=== PATIENT | female | born 1945 | race Two or more races ===

== ENCOUNTER 2019-10-04 02:10 | Inpatient (IN) | payer MEDICARE ==
[~2019-10-04] VITALS: Ht 149.9 cm; Wt 58.5 kg
--- NOTE | 2019-10-04 02:20 | NUR ---
PT BIBA FROM HOME C/O WEAKNESS AND FEVER. 103 ORAL TEMP. PT WAS DC'ED FROM [facility] 2 DAYS FOR SHINGLES PER PT. R UPPER QUADRANT ABD WOUND NOTED. +REDNESS +DISCHARGE. PT AAOX3, RESPIRATIONS EVEN AND UNLABORED ON RA W/ NAD NOTED. PT CONNECTED TO THE CLINICAL NURSE AND POX.
[2019-10-04] MEDS ORDERED: ACETAMINOPHEN ES 500 MG TABLET PO ONE (02:30)
[2019-10-04] MEDS ORDERED: ONDANSETRON HCL/PF 4 MG/2 ML VIAL IV ONE (02:30)
[2019-10-04] MEDS ORDERED: IV NS 0.9% 1,000 ML BAG IV ONE (02:30)
[2019-10-04] MEDS ORDERED: MORPHINE SULFATE INJ 2 MG/ML DISP.SYRIN IV ONE (02:30)
[2019-10-04] MEDS ORDERED: MORPHINE SULFATE INJ 4 MG/ML DISP.SYRIN ONE (02:32)
[2019-10-04] MEDS ORDERED: ACETAMINOPHEN ES 500 MG TABLET ONE (02:32)
[2019-10-04] MEDS ORDERED: ONDANSETRON HCL/PF 4 MG/2 ML VIAL ONE (02:32)
--- NOTE | 2019-10-04 02:38 | NUR ---
BLOOD COLLECTED AND SENT TO LAB
[2019-10-04 02:43] LABS: BASOPHILS % (AUTO) 0.2 % (0.0-2.0); EOSINOPHILS % (AUTO) 0.3 % (0.0-6.0); HEMATOCRIT 29 % (33-45); HEMOGLOBIN 9.5 g/dL (11.5-14.8); LYMPHOCYTES # (AUTO) 0.5 /CMM (0.8-4.8); LYMPHOCYTES % (AUTO) 3.1 % (20.0-44.0); MEAN CORPUSCULAR HGB CONC 33 g/dl (31.0-36.0); MEAN CORPUSCULAR VOLUME 87 fL (82-100); MONOCYTES # (AUTO) 0.5 /CMM (0.1-1.30); MONOCYTES % (AUTO) 2.8 % (2.0-12.0); NEUTROPHILS # (AUTO) 15.9 /CMM (1.8-8.9); NEUTROPHILS % (AUTO) 93.6 % (43.0-81.0); PLATELET COUNT (AUTO) 219 /CMM (150-450); RED BLOOD CELL COUNT(AUTO) 3.35 MIL/uL (4.0-5.2)
[2019-10-04 03:00] LABS: ALANINE AMINOTRANSFERASE 19 U/L (12-78); ALBUMIN 3.1 g/dL (3.4-5.0); ALKALINE PHOSPHATASE 64 U/L (46-116); ASPARTATE AMINOTRANSFERASE 16 U/L (15-37); BILIRUBIN,DIRECT 0.1 mg/dL (0.0-0.2); BILIRUBIN,TOTAL 0.3 mg/dL (0.2-1.0); CALCIUM, SERUM 8.1 mg/dL (8.5-10.1); CARBON DIOXIDE 12 mmol/L (21-32); CHLORIDE 107 mmol/L (98-107); CREATININE 4.2 mg/dL (0.6-1.3); GLUCOSE 134 mg/dL (74-106); POTASSIUM 5.5 mmol/L (3.5-5.1); SODIUM SERUM 136 mmol/L (136-145); TOTAL PROTEIN, SERUM 6.4 g/dL (6.4-8.2); UREA NITROGEN, BLOOD 59 mg/dL (7-18)
[2019-10-04] MEDS ORDERED: VANCOMYCIN 1 GM in IV D5W 250 ML IV ONE (03:00)
[2019-10-04] MEDS ORDERED: VANCOMYCIN 1 GM VIAL ONE (03:26)
--- NOTE | 2019-10-04 03:44 | NUR ---
URINE COLLECTED AND SENT TO THE LAB.
[2019-10-04] MEDS ORDERED: hydrALAZINE HCL IV 20 MG VIAL ONE (04:16)
[2019-10-04] MEDS ORDERED: ONDANSETRON HCL/PF 4 MG/2 ML VIAL IVP PRN (04:30)
[2019-10-04] MEDS ORDERED: DEXTROSE 50%-WATER 50 ML DISP.SYRIN IV PRN (04:30)
[2019-10-04] MEDS ORDERED: MAG HYDROX/AL HYDROX/SIMETH 30 ML UDC PO PRN (04:30)
[2019-10-04] MEDS ORDERED: MAGNESIUM HYDROXIDE 30 ML UDC PO PRN (04:30)
[2019-10-04] MEDS ORDERED: Z GUARD REMEDY 2 OZ OINT TP PRN (04:30)
[2019-10-04] MEDS ORDERED: hydrALAZINE HCL IV 20 MG VIAL IV ONE (04:30)
[2019-10-04 04:41] LABS: APPEARANCE,URINE Slightly Cloudy (CLEAR); BILIRUBIN,URINE Negative (NEGATIVE); BLOOD, URINE Small Ery/uL (NEGATIVE); COLOR,URINE Yellow (YELLOW); KETONES,URINE Negative (NEGATIVE); LEUKOCYTE ESTERASE ,URINE Negative (NEGATIVE); NITRITE, URINE Negative (NEGATIVE); PH,URINE 5.5 (5.0-8.0); PROTEIN,URINE >=300 mg/dl (NEGATIVE); UGLUCOSE Negative (NEGATIVE); UROBILINOGEN,URINE 0.2 EU/dL (0.2)
[2019-10-04 05:03] LABS: BACTERIA,URINE Many /HPF (None Seen); RBC,URINE 21-50 /HPF (0-2); SQUAMOUS EPITHELIAL CELL,UR Moderate /HPF (None Seen); YEAST,URINE Moderate /HPF (None Seen)
[2019-10-04 05:04] LABS: COARSE GRANULAR CASTS,URINE Few /LPF (None Seen); URINE AMORPHOUS URATE Moderate /HPF (None Seen)
--- NOTE | 2019-10-04 05:06 | NUR ---
REPORT GIVEN TO ARA BONILLA
--- NOTE | 2019-10-04 05:07 | NUR ---
NURSE STATES THAT ROOM IS NOT READY
--- NOTE | 2019-10-04 05:15 | NUR ---
RN NOTES: CONTACTED [facility] TO SPEAK WITH MD FARM ADVISOR FOR CLARIFICATION OF ORDERS, PT COMING IN FOR FEVER, NO SWAB DONE IN ER. AWAITING FOR CALL BACK.
--- NOTE | 2019-10-04 05:22 | NUR ---
PER 3 WEST, ROOM IS NOT READY
--- NOTE | 2019-10-04 05:35 | NUR ---
RN NOTES: RECEIVED CALL FROM [facility] FOLLOWING UP IF MD CALL BACK, INFORMED MD DIDNT CALLBACK YET, PER EXCHANGE, THEY WILL DISPATCH THE CALL AGAIN. 2ND PAGE/CALL MADE.
--- NOTE | 2019-10-04 06:04 | NUR ---
RN NOTES: PAGED MD EXCAVATOR BACKHOE OPERATOR/3RD PAGE, ANSWERED BY [employer] [facility]. AWAITING CALL BACK
--- NOTE | 2019-10-04 06:10 | NUR ---
RN NOTES: RECEIVED CALL BACK FROM VIK ROSE MD HOSPITALIST, RELAYED SITUATION PT COMING IN FOR FEVER, CELLULITIS SHINGLES, NO COVID SWAB DONE IN ER, PER VIK ORELLANA SWAB, PT WILL BE R/O COVID. ORDERS READ BACK VERIFIED AND CARRIED OUT. NOTIFIED RN BUSINESS LINE CONTROLLER
--- NOTE | 2019-10-04 06:15 | NUR ---
RN NOTES: ROOM 115-1 FIRST FLOOR
--- NOTE | 2019-10-04 06:26 | NUR ---
REPORT GIVEN TO DESHAUN FOR ROSA ELENA
[2019-10-04 07:25] VITALS: BP 167/77
[2019-10-04 08:00] VITALS: BP 161/71
[2019-10-04] MEDS ORDERED: FEE PK DOSING 1 MIN EA MC ONE (08:08)
[2019-10-04] MEDS ORDERED: MYCO250C8 MT (08:20)
[2019-10-04] MEDS ORDERED: AMLO10TA7 MT (08:20)
[2019-10-04] MEDS ORDERED: ATOR20TA PO (08:20)
[2019-10-04] MEDS ORDERED: LEVO75TA7 MT (08:20)
[2019-10-04] MEDS ORDERED: PATI8.4P MT (08:20)
[2019-10-04] MEDS ORDERED: ALEN70TA6 MT (08:20)
[2019-10-04] MEDS ORDERED: BENA5TAB5 MT (08:20)
[2019-10-04] MEDS ORDERED: HYDR100T27 MT (08:20)
[2019-10-04 08:57] LABS: CREATININE, URINE 82.5 MG/DL (30.0-125.0); URINE TOTAL PROTEIN 452.6 mg/dL (0-11.9)
[2019-10-04] MEDS: BLOOD SUGAR DIAGNOSTIC 1 EACH STRIP IN SCH ×4 (09:13→23:22)
[2019-10-04] MEDS: CITRIC ACID/SODIUM CITRATE (BICITRA)15 ML UDC PO SCH ×4 (09:13→20:30)
[2019-10-04] MEDS: AMLODIPINE BESYLATE 10 MG TABLET PO SCH (09:14)
[2019-10-04] MEDS: METOPROLOL SUCCINATE 50 MG TAB.SR.24H PO SCH (09:14)
[2019-10-04] MEDS: MYCOPHENOLATE MOFETIL 250 MG CAPSULE PO SCH ×2 (09:14→20:30)
[2019-10-04] MEDS: HEPARIN SODIUM, PORCINE 5000 UNITS/1 ML VIAL SQ SCH ×2 (09:15→20:33)
--- NOTE | 2019-10-04 10:26 | NUR ---
SATELLITE MANAGER NOTES REASSESSMENTS NOT DONE PRIOR TO TRANSFER.
[2019-10-04] MEDS: Sodium Bicarbonate 100 MEQ in IV D5/0.45 NACL 1,000 ML IV PRN (11:57)
[2019-10-04 12:00] VITALS: BP 166/91
[2019-10-04] MEDS ORDERED: DOXYCYCLINE HYCLATE (100 MG) 100 MG TABLET PO SCH ×3 (12:00→12:30)
[2019-10-04] MEDS ORDERED: CEFTRIAXONE 1 G in IV D5W 50 ML IV SCH (12:00)
[2019-10-04] MEDS: INSULIN REGULAR, HUMAN 100 UNIT/ML 3 ML VIAL SQ PRN ×2 (13:06→23:22)
[2019-10-04 16:00] VITALS: BP 144/87
[2019-10-04] MEDS ORDERED: MEROPENEM 500 MG in IV NS 0.9% 50 ML IV SCH (18:00)
[2019-10-04] MEDS ORDERED: MICAFUNGIN SODIUM 150 MG in IV NS 0.9% 100 ML IV SCH (18:00)
[2019-10-04] MEDS: MICAFUNGIN SODIUM 100 MG in IV NS 0.9% 100 ML IV SCH (18:30)
--- NOTE | 2019-10-04 18:45 | NUR ---
RN END OF SHIFT SUMMARY NOTE PT IS A/O X3, AFEBRILE. CYMRAES SPEAKING.CARDIAC-MONITORED NSR, VSS. TOLERATING RA. DENIES ANY CHEST PAIN, SOB, N/V. RESPIRATIONS ARE EVEN AND UNLABORED, NOT IN ANY ACUTE DISTRESS NOTED. PT IS AMBULATORY W/ ASSIST BUT PT REFUSES TO VOID IN BATHROOM. ON ISOLATION PRECAUTIONS TAKEN FOR R/O COVID AND SHINGLES. PIC TO LEFT WRIST INTACT, CDI. MIVF NA BICARB +D51/2 NS @75ML/HR INFUSING. DRESSING DONE TO LCW AND RIGHT BACK. SAFETY MEASURES ARE IN PLACE. CALL LIGHT IS LEFT WITHIN REACH. WILL MONITOR AND CONTINUE POC.
[2019-10-04 20:00] VITALS: BP 161/84
[2019-10-05] VITALS: BP 166/77
[2019-10-05] MEDS: ACETAMINOPHEN 325 MG TABLET PO PRN (01:01)
[2019-10-05] MEDS: hydrALAZINE HCL 25 MG TABLET PO PRN (01:03)
--- NOTE | 2019-10-05 03:00 | NUR ---
telephone order dispatcher notes received a call from radha whitman covid 19 result is negative laboratory animal facility supervisor jagjit made aware and so with mohit combs.
[2019-10-05 04:00] VITALS: BP 146/72
--- NOTE | 2019-10-05 04:54 | NUR ---
RN notes Awake in bed watching tv with no apparent distress. Breathing even and unlabored. Room air well tolerated, Noted to have slight elevated temp at 99.5 at the beginning of the shift . At 00:00 at 100.5. Cooling measures provided, tylenol given with help. Hydralazine 25mg for elevated BP 166/77. Temp went down to 98.3 and BP at 146/72. Result for Covid 19 test was negative as relayed by soc from lab. made aware (Dr. Badillo)
[2019-10-05] MEDS: Sodium Bicarbonate 100 MEQ in IV D5/0.45 NACL 1,000 ML IV PRN ×2 (06:02→22:41)
--- NOTE | 2019-10-05 07:12 | NUR ---
RN OPENING NOTES RECEIVED PATIENT RESTING IN BED COMFORTABLY, EASILY AROUSED. SHE IS AOX4, VERBAL, AND ON BED REST. SHE IS ON RA, TOLERATING WELL, NO SOB OR RESP DISTRESS. TELE MONITOR SHOWING SR. SKIN IS NOT INTACT, RASH AND BLISTERS ON RIGHT FLANK AND UNDER R BREAST, WOUND CONSULT PENDING. IV SITE ON L WRIST 18 G SL IS PATENT AND INTACT. PT IS COVID NEGATIVE, WILL CHANGE TO CLEAN UNIT. SAFETY MEASURES HAVE BEEN IMPLEMENTED, CALL LIGHT IS WITHIN REACH, BED IS IN LOWEST AND LOCKED POSITION, SIDE RAILS UP X2, WILL CONTINUE TO MONITOR FOR ANY CHANGES.
[2019-10-05] MEDS: BLOOD SUGAR DIAGNOSTIC 1 EACH STRIP IN SCH ×4 (07:49→21:44)
[2019-10-05 08:00] VITALS: BP_SYST 108; BP_SYST 169; BP_DIAS 73; BP_DIAS 74
[2019-10-05 08:05] LABS: BASOPHILS % (AUTO) 0.2 % (0.0-2.0); EOSINOPHILS % (AUTO) 0.3 % (0.0-6.0); HEMATOCRIT 25 % (33-45); HEMOGLOBIN 8.2 g/dL (11.5-14.8); LYMPHOCYTES # (AUTO) 0.4 /CMM (0.8-4.8); LYMPHOCYTES % (AUTO) 2.5 % (20.0-44.0); MEAN CORPUSCULAR HGB CONC 33 g/dl (31.0-36.0); MEAN CORPUSCULAR VOLUME 87 fL (82-100); MONOCYTES # (AUTO) 0.7 /CMM (0.1-1.30); MONOCYTES % (AUTO) 4.3 % (2.0-12.0); NEUTROPHILS # (AUTO) 14.5 /CMM (1.8-8.9); NEUTROPHILS % (AUTO) 92.7 % (43.0-81.0); PLATELET COUNT (AUTO) 180 /CMM (150-450); RED BLOOD CELL COUNT(AUTO) 2.92 MIL/uL (4.0-5.2); WHITE BLOOD COUNT (AUTO) 15.6 K/uL (4.3-11.0)
[2019-10-05 08:19] LABS: CALCIUM, SERUM 7.2 mg/dL (8.5-10.1); CHLORIDE 106 mmol/L (98-107); CREATININE 4.1 mg/dL (0.6-1.3); GLUCOSE 131 mg/dL (74-106); MAGNESIUM 2.2 mg/dL (1.8-2.4); PHOSPHORUS 3.9 mg/dL (2.5-4.9); POTASSIUM 4.9 mmol/L (3.5-5.1); SODIUM SERUM 136 mmol/L (136-145); UREA NITROGEN, BLOOD 55 mg/dL (7-18)
[2019-10-05 08:26] LABS: CHOLESTEROL 112 mg/dL (<200); HDL CHOLESTEROL 50 mg/dL (40-60); LDL 55 mg/dL (0-99); THYROID STIMULATING HORMONE 3.788 uIU/mL (0.358-3.74); TRIGLYCERIDES 61 mg/dL (30-150)
[2019-10-05 08:36] LABS: CARBON DIOXIDE 17 mmol/L (21-32)
[2019-10-05] MEDS: CITRIC ACID/SODIUM CITRATE (BICITRA)15 ML UDC PO SCH ×4 (08:36→21:40)
[2019-10-05] MEDS: MYCOPHENOLATE MOFETIL 250 MG CAPSULE PO SCH ×2 (08:36→21:40)
[2019-10-05] MEDS: AMLODIPINE BESYLATE 10 MG TABLET PO SCH (08:36)
[2019-10-05] MEDS: METOPROLOL SUCCINATE 50 MG TAB.SR.24H PO SCH (08:37)
[2019-10-05] MEDS: HEPARIN SODIUM, PORCINE 5000 UNITS/1 ML VIAL SQ SCH ×2 (08:38→21:41)
[2019-10-05 08:51] LABS: ALBUMIN 2.7 g/dL (3.4-5.0); BILIRUBIN,DIRECT 0.1 mg/dL (0.0-0.2); BILIRUBIN,TOTAL 0.3 mg/dL (0.2-1.0); TOTAL PROTEIN, SERUM 5.8 g/dL (6.4-8.2)
[2019-10-05 10:59] LABS: ABG BASE EXCESS -9.1 mmol/L; ABG OXYGEN SATURATION 96.2 % (92.0-98.5); ABG PH 7.368 (7.350-7.450); ABG PO2 83.4 mmHg (75.0-100.0); COHb 0.2 % (0.5-1.5); MetHb 0.1 % (0.0-1.5); O2Hb 95.9 % (94.0-97.0); SITE, ABG Left Brachial; VENT MODE, BG RA
--- NOTE | 2019-10-05 11:19 | NUR ---
RN NOTES PT TRANSFERRED TO ROOM 204-1, TRANSFER REPORT GIVEN TO RICHARDSON RN FOR ROSA ELENA
[2019-10-05] MEDS: INSULIN REGULAR, HUMAN 100 UNIT/ML 3 ML VIAL SQ PRN ×3 (11:34→21:51)
--- NOTE | 2019-10-05 11:59 | NUR ---
M/S 2 RN NOTES RECEIVED PT ON BED TRANSFERRED FROM DESHAUN ACCOMPANIED BY CHLOE BULLOCK AND SIL AARON. PT A/OX4, RESPONSIVE TO ALL STIMULI. ENG/TAGALOG SPEAKING, ABLE TO MAKE NEEDS KNOWN. RESPIRATION EVEN AND NON LABORED WITH NO ACUTE RESPIRATORY DISTRESS, SATING IN ROOM AIR 96%. ABD SOFT AND NON DISTENDED WITH ACTIVE BOWEL SOUNDS, CONTINENT B&B. SKIN WARM TO TOUCH AND DRY. DRESSING ON SHINGLES IN PLACE, CLEAN AND DRY, BACK AND UNDER BREAST FOLD. PT DENIES PAIN AND DISCOMFORT AT THIS TIME. IV SITE AT LEFT WRIST #18, RUNNING NA BICARBONATE 100 MEQ WITH D5 1/2 NS AT 75 ML/HR, RECEIVED AT 600 ML. ALL CONCERNS ATTENDED, BED IN LOW LOCKED POSITION, SRX2 UP FOR SAFETY, CALL LIGHT WITHIN REACH, ORIENTED TO ROOM. PT ON AIRBORNE ISOLATION DUE TO SHINGLES. COVID 19 NEG. WILL CONTINUE TO EVAL CARE.
--- NOTE | 2019-10-05 12:45 | NUR ---
M/S RN NOTES CITRIC ACID 1300 DUE MEDS FF UP, PER SUDHA TO SEND THE MEDICATION
--- NOTE | 2019-10-05 13:25 | NUR ---
M/S RN NOTES CITRIC ACID 1300 DUE MEDS FF UP, PER SUDHA/MELO TO SEND THE MEDICATION AFTER LUNCH OF TECH
[2019-10-05 16:00] VITALS: BP 151/68
[2019-10-05] MEDS: MEROPENEM 500 MG in IV NS 0.9% 50 ML IV SCH (16:02)
[2019-10-05] MEDS: MICAFUNGIN SODIUM 100 MG in IV NS 0.9% 100 ML IV SCH (17:00)
--- NOTE | 2019-10-05 18:37 | NUR ---
M/S RN CLOSING NOTES NOTES PT A/OX4, NAD, SATING IN ROOM AIR >92%. ABD SOFT AND NON DISTENDED WITH ACTIVE BOWEL SOUNDS, CONTINENT B&B. SKIN WARM TO TOUCH AND DRY. DRESSING ON SHINGLES IN PLACE, CLEAN AND DRY, BACK AND UNDER BREAST FOLD. DENIES PAIN AND DISCOMFORT. IV SITE AT LEFT WRIST #18, RUNNING NA BICARBONATE 100 MEQ WITH D5 1/2 NS AT 75 ML/HR. ALL CONCERNS ATTENDED, BED IN LOW LOCKED POSITION, SRX2 UP FOR SAFETY, CALL LIGHT WITHIN REACH, ON AIRBORNE ISOLATION DUE TO SHINGLES. ENDORSED CARE TO NEXT SHIFT.
--- NOTE | 2019-10-05 19:30 | NUR ---
ms rn opening note received patient on isolation for shingles. patient in bed. a/ox4. tolerating room air. respirations are even and unlabored. no s/s sob noted. no c/o pain at this time. in no apparent distress. iv access in left wrist #18 running na bicard 100MEQ with D5 03/26 ns @75ml/hr. hob elevated in semi fowlers, side rials up x2. call light within reach. will continue to monitor.
[2019-10-05 20:00] VITALS: BP 141/76
[2019-10-05 20:12] VITALS: BP 141/76
--- NOTE | 2019-10-05 23:41 | NUR ---
ms rn note photos were not taken per protocol Qsundays d/t patient was admitted yesterday. confirmed with charge nurse that photos do not need to be taken within one day of admission unless significant skin changes occurred. did a complete skin assessment and compared photos, no new skin break down noted.
[2019-10-06] MEDS ORDERED: VANCOMYCIN 0.75 GM in IV D5W 250 ML IV SCH (03:00)
[2019-10-06] MEDS: ACETAMINOPHEN 325 MG TABLET PO PRN ×3 (03:32→17:39)
--- NOTE | 2019-10-06 03:32 | NUR ---
ms rn note administered prn tylenol 650mg per patient request for back pain. will continue to monitor.
--- NOTE | 2019-10-06 06:20 | NUR ---
ms rn closing note patient on airborne isolation for shingles. patient in bed. a/ox4. remains tolerating room air. respirations are even and unlabored. no sob noted. gave Tylenol for pain. No distress. iv access maintained in left wrist #18 running sodium bicard 100MEQ with D5 1/2 ns @75ml/hr. hob elevated in semi fowlers, side rials up x2. call light within reach. will endorse to next shift
[2019-10-06] MEDS: BLOOD SUGAR DIAGNOSTIC 1 EACH STRIP IN SCH ×4 (06:37→22:29)
[2019-10-06 06:49] LABS: BASOPHILS # (AUTO) 0.1 /CMM (0.0-0.2); BASOPHILS % (AUTO) 0.6 % (0.0-2.0); EOSINOPHILS % (AUTO) 1.6 % (0.0-6.0); HEMATOCRIT 24 % (33-45); HEMOGLOBIN 7.9 g/dL (11.5-14.8); LYMPHOCYTES # (AUTO) 0.5 /CMM (0.8-4.8); LYMPHOCYTES % (AUTO) 4.3 % (20.0-44.0); MEAN CORPUSCULAR HGB CONC 33 g/dl (31.0-36.0); MEAN CORPUSCULAR VOLUME 86 fL (82-100); MONOCYTES # (AUTO) 0.7 /CMM (0.1-1.30); MONOCYTES % (AUTO) 6.6 % (2.0-12.0); NEUTROPHILS # (AUTO) 9.9 /CMM (1.8-8.9); NEUTROPHILS % (AUTO) 86.9 % (43.0-81.0); PLATELET COUNT (AUTO) 181 /CMM (150-450); RED BLOOD CELL COUNT(AUTO) 2.81 MIL/uL (4.0-5.2); WHITE BLOOD COUNT (AUTO) 11.4 K/uL (4.3-11.0)
[2019-10-06 07:05] LABS: ALANINE AMINOTRANSFERASE 20 U/L (12-78); ALBUMIN 2.7 g/dL (3.4-5.0); ALKALINE PHOSPHATASE 69 U/L (46-116); ASPARTATE AMINOTRANSFERASE 18 U/L (15-37); BILIRUBIN,TOTAL 0.4 mg/dL (0.2-1.0); CALCIUM, SERUM 6.9 mg/dL (8.5-10.1); CARBON DIOXIDE 22 mmol/L (21-32); CHLORIDE 104 mmol/L (98-107); GLUCOSE 139 mg/dL (74-106); MAGNESIUM 2.2 mg/dL (1.8-2.4); PHOSPHORUS 3.7 mg/dL (2.5-4.9); POTASSIUM 4.7 mmol/L (3.5-5.1); SODIUM SERUM 137 mmol/L (136-145); TOTAL PROTEIN, SERUM 5.8 g/dL (6.4-8.2); UREA NITROGEN, BLOOD 59 mg/dL (7-18)
--- NOTE | 2019-10-06 07:22 | NUR ---
RN NOTES Received patient in bed resting comfortably in moderate high back rest. on airborne isolation for shingles. A/O x4. On RA with no signs of distress noted at this time. IV access on left wrist #18 running sodium bicarb 100MEQ with D5 1/2 NS @75ml/hr. patent and intact, safety measures in place, bed in lowest locked position with side rials up x2. call light within reach. Will continue to monitor.
[2019-10-06 08:00] VITALS: BP 153/84
[2019-10-06] MEDS: AMLODIPINE BESYLATE 10 MG TABLET PO SCH (08:40)
[2019-10-06] MEDS: METOPROLOL SUCCINATE 50 MG TAB.SR.24H PO SCH (08:40)
--- NOTE | 2019-10-06 08:42 | NUR ---
WOUND CARE CONSULT: PT PRESENTS WITH HEALING LESIONS TO RT BREASTFOLD AREA AND RT SIDE OF BACK, PRESENT ON ADMISSION. CONCUR WITH CURRENT TREATMENT (XEROFORM AND ABD PAD). DISCUSSED WITH NURSING STAFF. PT IS INDEPENDENT WITH BED MOBILITY AND CONTINENT. CURRENT FERNIE SCORE IS 19.
[2019-10-06] MEDS: MYCOPHENOLATE MOFETIL 250 MG CAPSULE PO SCH ×2 (08:43→22:27)
[2019-10-06] MEDS: CITRIC ACID/SODIUM CITRATE (BICITRA)15 ML UDC PO SCH ×4 (08:43→22:27)
[2019-10-06] MEDS: HEPARIN SODIUM, PORCINE 5000 UNITS/1 ML VIAL SQ SCH ×2 (08:43→22:28)
[2019-10-06 10:45] LABS: IRON, SERUM 45 ug/dl (50-175); TOTAL IRON BINDING CAPACITY 127 ug/dl (250-450)
[2019-10-06 10:46] LABS: FERRITIN 707 ng/mL (8-388)
[2019-10-06 16:00] VITALS: BP 138/66
[2019-10-06] MEDS: MEROPENEM 500 MG in IV NS 0.9% 50 ML IV SCH (16:35)
[2019-10-06] MEDS: MICAFUNGIN SODIUM 100 MG in IV NS 0.9% 100 ML IV SCH (17:37)
[2019-10-06] MEDS: Sodium Bicarbonate 100 MEQ in IV D5/0.45 NACL 1,000 ML IV PRN (17:38)
--- NOTE | 2019-10-06 18:40 | NUR ---
RN NOTES Patient in bed resting comfortably in moderate high back rest. on airborne isolation for shingles. A/O x4. On RA with no signs of distress noted throughout the shift. IV access on left wrist #18 running sodium bicarb 100MEQ with D5 1/2 NS @75ml/hr. patent and intact, safety measures in place, bed in lowest locked position with side rials up x2. call light within reach. Will endorse to assistant casino shift manager nurse for randee.
--- NOTE | 2019-10-06 19:30 | NUR ---
ms rn opening note received patient on isolation for shingles. patient in bed. a/ox4. tolerating room air. respirations are even and unlabored. no s/s sob noted. no c/o pain at this time. in no apparent distress. iv access in left wrist #18 running sodium bicard 100MEQ with D5 03/26 NS @75ml/hr. hob elevated in semi fowlers, side rials up x2. call light within reach. informed patient i will need to collect a urine specimen. will continue to monitor.
[2019-10-06 20:00] VITALS: BP 145/76
--- NOTE | 2019-10-06 20:20 | NUR ---
MS RN NOTE REASSESSED PATIENT O2 SATURATION, 88% ON ROOM AIR. PLACED PATIENT ON 2L/MIN VIA NASAL CANNULA O2 SAT 91%, INCREASE TO 4L/MIN AND INSTRUCTED PATIENT TO TAKE DEEP BREATHS, O2 SAT NOW 97%. WILL CONTINUE TO MONITOR.
[2019-10-07] MEDS: ACETAMINOPHEN 325 MG TABLET PO PRN ×2 (03:23→14:41)
--- NOTE | 2019-10-07 03:23 | NUR ---
ms rn note administered prn tylenol 650mg for generalied pain,. will continue to monitor.
[2019-10-07] MEDS: BLOOD SUGAR DIAGNOSTIC 1 EACH STRIP IN SCH ×4 (06:08→21:55)
[2019-10-07] MEDS: INSULIN REGULAR, HUMAN 100 UNIT/ML 3 ML VIAL SQ PRN ×2 (06:15→17:09)
--- NOTE | 2019-10-07 06:50 | NUR ---
ms rn closing note on isolation for shingles. patient in bed. a/ox4. on oxygen 4l/min via nasal cannula. respirations are even and unlabored. no sob noted. managed pain with tylenol. no distress. iv access maintained in left wrist #18 running sodium bicarb 100MEQ with D5 03/26 NS @75ml/hr. hob elevated in semi fowlers, side rials up x2. call light within reach. unable to collect urine specimen. will endorse to day shift
[2019-10-07 07:23] LABS: CALCIUM, SERUM 7.1 mg/dL (8.5-10.1); CARBON DIOXIDE 25 mmol/L (21-32); CHLORIDE 105 mmol/L (98-107); CREATININE 4.1 mg/dL (0.6-1.3); GLUCOSE 126 mg/dL (74-106); POTASSIUM 4.6 mmol/L (3.5-5.1); SODIUM SERUM 140 mmol/L (136-145); UREA NITROGEN, BLOOD 58 mg/dL (7-18)
[2019-10-07 08:00] VITALS: BP 158/67
[2019-10-07] MEDS: METOPROLOL SUCCINATE 50 MG TAB.SR.24H PO SCH (08:27)
[2019-10-07] MEDS: MYCOPHENOLATE MOFETIL 250 MG CAPSULE PO SCH ×2 (08:27→21:55)
[2019-10-07] MEDS: CITRIC ACID/SODIUM CITRATE (BICITRA)15 ML UDC PO SCH ×4 (08:27→21:52)
[2019-10-07] MEDS: HEPARIN SODIUM, PORCINE 5000 UNITS/1 ML VIAL SQ SCH ×2 (08:28→21:53)
[2019-10-07] MEDS: AMLODIPINE BESYLATE 10 MG TABLET PO SCH (08:28)
[2019-10-07] MEDS: Sodium Bicarbonate 100 MEQ in IV D5/0.45 NACL 1,000 ML IV PRN (14:41)
[2019-10-07 16:07] VITALS: BP 156/77
[2019-10-07] MEDS: MEROPENEM 500 MG in IV NS 0.9% 50 ML IV SCH (16:12)
[2019-10-07] MEDS: MICAFUNGIN SODIUM 100 MG in IV NS 0.9% 100 ML IV SCH (17:00)
[2019-10-07] MEDS ORDERED: CEFTRIAXONE 2 G in IV D5W 100 ML IV SCH (18:30)
--- NOTE | 2019-10-07 18:49 | NUR ---
RN NOTES Patient in bed resting comfortably in moderate high back rest. on airborne isolation for shingles. A/O x4. On RA with no signs of distress noted throughout the shift. IV access on left wrist #18 running sodium bicarb 100MEQ with D5 1/2 NS @75ml/hr. patent and intact, safety measures in place, bed in lowest locked position with side rials up x2. call light within reach. Will endorse to welder assembler nurse for randee.
--- NOTE | 2019-10-07 19:30 | NUR ---
ms rn opening note received patient on isolation for shingles. patient in bed. a/ox4. on oxygen 4l/min via nasal cannula. respirations are even and unlabored. no s/s sob noted. no c/o pain at this time. in no apparent distress. iv access in left wrist #18 running sodium bicard 100MEQ with D5 03/26 NS @75ml/hr. hob elevated in semi fowlers, side rials up x2. call light within reach. will continue to monitor.
[2019-10-07 20:00] VITALS: BP 147/68
--- NOTE | 2019-10-08 06:23 | NUR ---
ms rn closing note on isolation for shingles. patient in bed. a/ox4. on and off oxygen 4l/min via nasal cannula. respirations are even and unlabored. no sob noted. no c/o pain t/o shift. no distress. iv access maintained in left wrist #18 running sodium bicarb 100MEQ with D5 03/26 NS @75ml/hr. hob elevated in semi fowlers, side rials up x2. call light within reach. will endorse to day shift.
[2019-10-08 06:30] LABS: BASOPHILS # (AUTO) 0.1 /CMM (0.0-0.2); EOSINOPHILS % (AUTO) 2.1 % (0.0-6.0); HEMATOCRIT 26 % (33-45); HEMOGLOBIN 8.4 g/dL (11.5-14.8); LYMPHOCYTES # (AUTO) 0.5 /CMM (0.8-4.8); LYMPHOCYTES % (AUTO) 5.9 % (20.0-44.0); MEAN CORPUSCULAR HGB CONC 33 g/dl (31.0-36.0); MEAN CORPUSCULAR VOLUME 87 fL (82-100); MONOCYTES # (AUTO) 0.6 /CMM (0.1-1.30); MONOCYTES % (AUTO) 7.2 % (2.0-12.0); NEUTROPHILS # (AUTO) 6.7 /CMM (1.8-8.9); NEUTROPHILS % (AUTO) 83.8 % (43.0-81.0); PLATELET COUNT (AUTO) 211 /CMM (150-450); RED BLOOD CELL COUNT(AUTO) 2.92 MIL/uL (4.0-5.2); WHITE BLOOD COUNT (AUTO) 7.9 K/uL (4.3-11.0)
[2019-10-08] MEDS: BLOOD SUGAR DIAGNOSTIC 1 EACH STRIP IN SCH ×4 (06:33→21:26)
--- NOTE | 2019-10-08 07:12 | NUR ---
MS RN NOTES PATIENT IN BED ALERT ORIENTED X 4. NO ACUTE DISTRESS NOTED. BREATHING UNLABORED. NO SOB NOTED. IV ACCESS PATENT AND INTACT, NO REDNESS, NO SWELLING NOTED. SAFETY MEASURES IN PLACE. CALL LIGHT WITHIN REACH. WILL CONTINUE TO MONITOR ACCORDINGLY.
[2019-10-08 07:17] LABS: CALCIUM, SERUM 6.9 mg/dL (8.5-10.1); CARBON DIOXIDE 25 mmol/L (21-32); CHLORIDE 104 mmol/L (98-107); CREATININE 3.9 mg/dL (0.6-1.3); GLUCOSE 126 mg/dL (74-106); MAGNESIUM 2.1 mg/dL (1.8-2.4); POTASSIUM 4.6 mmol/L (3.5-5.1); SODIUM SERUM 142 mmol/L (136-145); UREA NITROGEN, BLOOD 61 mg/dL (7-18)
[2019-10-08 08:34] VITALS: BP 159/75
[2019-10-08] MEDS: MYCOPHENOLATE MOFETIL 250 MG CAPSULE PO SCH ×2 (09:33→21:19)
[2019-10-08] MEDS: FUROSEMIDE 100 MG/10 ML VIAL IV SCH ×3 (09:33→17:25)
[2019-10-08] MEDS: CITRIC ACID/SODIUM CITRATE (BICITRA)15 ML UDC PO SCH ×4 (09:33→21:19)
[2019-10-08] MEDS: METOPROLOL SUCCINATE 50 MG TAB.SR.24H PO SCH (09:34)
[2019-10-08] MEDS: HEPARIN SODIUM, PORCINE 5000 UNITS/1 ML VIAL SQ SCH ×2 (09:35→20:50)
[2019-10-08] MEDS: AMLODIPINE BESYLATE 10 MG TABLET PO SCH (09:35)
[2019-10-08] MEDS: INSULIN REGULAR, HUMAN 100 UNIT/ML 3 ML VIAL SQ PRN ×2 (12:25→21:26)
--- NOTE | 2019-10-08 14:26 | NUR ---
MS RN NOTES RECEIVED NEW ORDER FROM GERARDO COX FOR MIDLINE INSERTION , ORDER CLARIFIED AND READ BACK WITH GERARDO COX, NOTED AND CARRIED OUT.
--- NOTE | 2019-10-08 14:55 | NUR ---
MS RN NOTES MIDLINE INSERTED BY PICC LINE NURSE ANTHONY AT LEFT UPPER ARM G 18, PATIENT TOLERATED WELL, WITH TRANSPARENT DRESSING , NO REDNESS, NO BLEEDING, NO SWELLING NOTED. PER ANTHONY OK FOR USE.
[2019-10-08] MEDS: MICAFUNGIN SODIUM 100 MG in IV NS 0.9% 100 ML IV SCH (17:44)
[2019-10-08 17:51] VITALS: BP 147/71
--- NOTE | 2019-10-08 18:56 | NUR ---
MS RN CLOSING NOTES PATIENT IN BED ALERT ORIENTED X 4. NO ACUTE DISTRESS NOTED. BREATHING UNLABORED. NO SOB NOTED. IV ACCESS PATENT AND INTACT, NO REDNESS, NO SWELLING NOTED. NEEDS ATTENDED AND ANTICIPATED. KEPT COMFORTABLE. SAFETY MEASURES IN PLACE. CALL LIGHT WITHIN REACH. WILL ENDORSE TO NIGHT FOR CONTINUITY OF CARE.
--- NOTE | 2019-10-08 19:17 | NUR ---
MS RN: RECEIVED PATIENT Patient in bed, awake, A/O x4 forgetful. Appears weak, left eyelid swelling, denies pain. Right breast fold lesion, ABD pad in place. O2 4L via NC, tolerating well. IVf infusing. Contact/Airborne precaution maintained. Safety measure in place.
[2019-10-08 20:00] VITALS: BP 158/70
[2019-10-08] MEDS: Sodium Bicarbonate 100 MEQ in IV D5/0.45 NACL 1,000 ML IV PRN (20:49)
[2019-10-08] MEDS: CEFEPIME 2 GM in IV D5W 100 ML IV SCH (21:19)
[2019-10-08] MEDS: ACETAMINOPHEN 325 MG TABLET PO PRN (21:19)
--- NOTE | 2019-10-08 21:19 | NUR ---
MS RN: BACK PAIN Patient c/o lower back pain, denies N/V. PRN Tylenol given, will reassess.
--- NOTE | 2019-10-09 06:45 | NUR ---
MS RN: END OF SHIFT REPORT Patient in bed, A/O x3, forgetful at times. Left eyelid swelling, denies pain, no eye discharge. LIBORIO midline intact, maintained IVF. IV ABX as scheduled, afebrile overnight. O2 sat on low 90's, continue on O2 4L via NC, denies shortness of breath at rest and with exertion. Right back, right breast fold wound, wound care done. Given PRN Tylenol for lower back pain with relief. Contact/Airborne precaution maintained. Plan for ABX to complete 2 weeks as per ID. Will endorse to oncoming RN.
[2019-10-09] MEDS: BLOOD SUGAR DIAGNOSTIC 1 EACH STRIP IN SCH ×4 (07:01→21:22)
[2019-10-09] MEDS: INSULIN REGULAR, HUMAN 100 UNIT/ML 3 ML VIAL SQ PRN ×4 (07:10→21:42)
--- NOTE | 2019-10-09 07:15 | NUR ---
MS RN NOTES PATIENT IN BED ALERT ORIENTED X 4. NO ACUTE DISTRESS NOTED. BREATHING UNLABORED. NO SOB NOTED. IV ACCESS PATENT AND INTACT, NO REDNESS, NO SWELLING NOTED. SAFETY MEASURES IN PLACE. ISOLATION PRECAUTION IN PLACE. CALL LIGHT WITHIN REACH. WILL CONTINUE TO MONITOR ACCORDINGLY.
--- NOTE | 2019-10-09 07:15 | NUR ---
MS RN NOTES PATIENT IN BED ALERT ORIENTED X 4. NO ACUTE DISTRESS NOTED. BREATHING UNLABORED. NO SOB NOTED. DENIED PAIN AT THIS TIME. IV ACCESS PATENT AND INTACT, NO REDNESS, NO SWELLING NOTED. SAFETY MEASURES IN PLACE. CALL LIGHT WITHIN REACH. WILL CONTINUE TO MONITOR ACCORDINGLY. Addendum: 10/09/19 at 1119 by SUSAN LEON RN DISREGARD ABOVE NOTES , WRONG PATIENT
[2019-10-09 08:00] VITALS: BP 161/81
[2019-10-09 08:14] LABS: BASOPHILS # (AUTO) 0.1 /CMM (0.0-0.2); BASOPHILS % (AUTO) 1.4 % (0.0-2.0); EOSINOPHILS % (AUTO) 1.4 % (0.0-6.0); HEMATOCRIT 24 % (33-45); LYMPHOCYTES # (AUTO) 0.4 /CMM (0.8-4.8); LYMPHOCYTES % (AUTO) 5.9 % (20.0-44.0); MEAN CORPUSCULAR HGB CONC 33 g/dl (31.0-36.0); MEAN CORPUSCULAR VOLUME 88 fL (82-100); MONOCYTES # (AUTO) 0.5 /CMM (0.1-1.30); MONOCYTES % (AUTO) 6.7 % (2.0-12.0); NEUTROPHILS # (AUTO) 5.9 /CMM (1.8-8.9); NEUTROPHILS % (AUTO) 84.6 % (43.0-81.0); PLATELET COUNT (AUTO) 228 /CMM (150-450); RED BLOOD CELL COUNT(AUTO) 2.74 MIL/uL (4.0-5.2)
[2019-10-09] MEDS: MYCOPHENOLATE MOFETIL 250 MG CAPSULE PO SCH ×2 (08:52→21:04)
[2019-10-09] MEDS: CITRIC ACID/SODIUM CITRATE (BICITRA)15 ML UDC PO SCH ×4 (08:52→21:04)
[2019-10-09] MEDS: METOPROLOL SUCCINATE 50 MG TAB.SR.24H PO SCH (08:53)
[2019-10-09] MEDS: AMLODIPINE BESYLATE 10 MG TABLET PO SCH (08:53)
[2019-10-09] MEDS: HEPARIN SODIUM, PORCINE 5000 UNITS/1 ML VIAL SQ SCH ×2 (08:54→21:22)
--- NOTE | 2019-10-09 09:00 | NUR ---
MS RN NOTES PATIENT SEEN AND EVALUATED BY DR JACKSON, MADE AWARE OF CHEST XRAY RESULT FROM THIS AM , NO NEW ORDER MADE AT THIS TIME.
[2019-10-09 09:13] LABS: ALANINE AMINOTRANSFERASE 21 U/L (12-78); ALBUMIN 2.8 g/dL (3.4-5.0); ALKALINE PHOSPHATASE 92 U/L (46-116); ASPARTATE AMINOTRANSFERASE 24 U/L (15-37); BILIRUBIN,TOTAL 0.4 mg/dL (0.2-1.0); CALCIUM, SERUM 6.8 mg/dL (8.5-10.1); CARBON DIOXIDE 28 mmol/L (21-32); CHLORIDE 103 mmol/L (98-107); GLUCOSE 184 mg/dL (74-106); MAGNESIUM 2.1 mg/dL (1.8-2.4); PHOSPHORUS 4.5 mg/dL (2.5-4.9); POTASSIUM 4.7 mmol/L (3.5-5.1); SODIUM SERUM 142 mmol/L (136-145); TOTAL PROTEIN, SERUM 6.2 g/dL (6.4-8.2); UREA NITROGEN, BLOOD 61 mg/dL (7-18)
[2019-10-09] MEDS: Sodium Bicarbonate 100 MEQ in IV D5/0.45 NACL 1,000 ML IV PRN (12:34)
[2019-10-09 16:44] VITALS: BP 152/61
--- NOTE | 2019-10-09 19:30 | NUR ---
MS RN RECEIVE PT IN BED AWAKE WATCHING TV A/O X 3 PERIOD OF FORGETFULNESS, AIRBORNE ISOLATION. IN STABLE, NO S/S OF DISTRESS, SAFETY MEASURES AT ALL TIMES. WILL CONT TO MONITOR PT Addendum: 10/10/19 at 0455 by CLEMENTE OVIEDO RN NOTED IV BEEPING, REPOSITION PT'S ARM. RECEIVE PT WITH ONGOING D5 1/2 NS + NA BICARB @ 75 ML/HR. AMOUNT FLUID BAG APPROXIMATELY AT 1000 ML WITNESS BY 1 RN & MANAGER CLINICAL. EDUCATED PT THE SHE NEEDS IV FLUID. PT VERBALIZED UNDERSTANDING.
[2019-10-09 20:00] VITALS: BP 146/67
[2019-10-09 20:10] VITALS: BP 146/67
[2019-10-09] MEDS: CEFEPIME 2 GM in IV D5W 100 ML IV SCH (21:01)
--- NOTE | 2019-10-10 | NUR ---
MS RN PT SLEEPING AT THIS TIME NO S/S OF DISTRESS NOTED
--- NOTE | 2019-10-10 05:50 | NUR ---
MS RN PT COMFORTABLE SLEEPING AND EASILY AWAKEN NO S/S OF DISTRESS, TOLERATING ROOM AIR NO SOB, MONITORED ACCORDINGLY NO C/O OF PAIN, GOOD SKIN CARE AT ALL TIMES. KEPT CLEAN, DRY AND COMFORTABLE, NEEDS ATTENDED AND ANTICIPATED, SAFETY MEASURES AT ALL TIMES,. WILL ENDORSE TO NEXT SHIFT.
[2019-10-10] MEDS: BLOOD SUGAR DIAGNOSTIC 1 EACH STRIP IN SCH ×4 (06:44→22:00)
[2019-10-10] MEDS: INSULIN REGULAR, HUMAN 100 UNIT/ML 3 ML VIAL SQ PRN ×3 (06:48→18:11)
[2019-10-10 07:04] LABS: BASOPHILS # (AUTO) 0.1 /CMM (0.0-0.2); BASOPHILS % (AUTO) 1.1 % (0.0-2.0); EOSINOPHILS % (AUTO) 0.3 % (0.0-6.0); HEMATOCRIT 23 % (33-45); HEMOGLOBIN 7.7 g/dL (11.5-14.8); LYMPHOCYTES # (AUTO) 0.4 /CMM (0.8-4.8); LYMPHOCYTES % (AUTO) 5.3 % (20.0-44.0); MEAN CORPUSCULAR HGB CONC 33 g/dl (31.0-36.0); MEAN CORPUSCULAR VOLUME 88 fL (82-100); MONOCYTES # (AUTO) 0.5 /CMM (0.1-1.30); NEUTROPHILS # (AUTO) 6.5 /CMM (1.8-8.9); NEUTROPHILS % (AUTO) 87.3 % (43.0-81.0); PLATELET COUNT (AUTO) 287 /CMM (150-450); RED BLOOD CELL COUNT(AUTO) 2.66 MIL/uL (4.0-5.2); WHITE BLOOD COUNT (AUTO) 7.4 K/uL (4.3-11.0)
[2019-10-10 07:14] LABS: CALCIUM, SERUM 6.9 mg/dL (8.5-10.1); CARBON DIOXIDE 30 mmol/L (21-32); CHLORIDE 102 mmol/L (98-107); CREATININE 4.1 mg/dL (0.6-1.3); GLUCOSE 182 mg/dL (74-106); POTASSIUM 4.7 mmol/L (3.5-5.1); SODIUM SERUM 142 mmol/L (136-145); UREA NITROGEN, BLOOD 64 mg/dL (7-18)
[2019-10-10 08:00] VITALS: BP 146/107
[2019-10-10] MEDS: CITRIC ACID/SODIUM CITRATE (BICITRA)15 ML UDC PO SCH ×4 (08:29→21:00)
[2019-10-10] MEDS: MYCOPHENOLATE MOFETIL 250 MG CAPSULE PO SCH ×2 (08:31→21:00)
[2019-10-10] MEDS: AMLODIPINE BESYLATE 10 MG TABLET PO SCH (08:31)
[2019-10-10] MEDS: METOPROLOL SUCCINATE 50 MG TAB.SR.24H PO SCH (08:32)
[2019-10-10] MEDS: HEPARIN SODIUM, PORCINE 5000 UNITS/1 ML VIAL SQ SCH ×2 (09:00→21:00)
--- NOTE | 2019-10-10 09:00 | NUR ---
MS RN NOTES NOTIFIED DR TINY FLOWERS REGARDING HEMOGLOBIN 7.7, CLARIFIED IF OK TO GIVE HEPARIN, DR TINY FLOWERS SAID TO HOLD HEPARIN DOSE.
[2019-10-10] MEDS: Sodium Bicarbonate 100 MEQ in IV D5/0.45 NACL 1,000 ML IV PRN (12:55)
[2019-10-10 16:00] VITALS: BP 143/68
--- NOTE | 2019-10-10 19:00 | NUR ---
MS RN CLOSING NOTES PATIENT IN BED ALERT ORIENTED X 4. NO ACUTE DISTRESS NOTED. BREATHING UNLABORED. NO SOB NOTED. IV ACCESS PATENT AND INTACT, NO REDNESS, NO SWELLING NOTED. NEEDS ATTENDED AND ANTICIPATED. KEPT COMFORTABLE. SAFETY MEASURES IN PLACE. CALL LIGHT WITHIN REACH. PATIENT FOR DISCHARGE TONIGHT AFTER ADMINISTRATION OF IV ANTIBIOTIC AND OXYGEN DELIVERY AT BEDSIDE ARRANGED BY I O PSYCHOLOGIST BEFORE DISCHARGE. WILL ENDORSE TO NIGHT FOR CONTINUITY OF CARE AND DISCHARGE.
[2019-10-10] MEDS: CEFEPIME 2 GM in IV D5W 100 ML IV SCH (19:24)
--- NOTE | 2019-10-10 19:30 | NUR ---
MS RN OPENING NOTES RECEIVED PATIENT RESTING IN BED COMFORTABLY; A/OX4; BREATHING EVEN AND UNLABORED; NO DISTRESS NOTED; PATIENT DENIES PAIN AND REPORTS SHE IS EXCITED TO GO HOME; PATIENT AWARE SHE WILL BE ABLE TO BE DISCHARGED FROM HOSPITAL AFTER IV ANTIBIOTIC FINISHES INFUSING; L UA MIDLINE FLUSHING WELL; NO S/S OF REDNESS OR INFILTRATION NOTED; PATIENT TOLERATING INFUSION WELL; SAFETY PRECAUTIONS IMPLEMENTED; ISOLATION PRECAUTIONS MAINTAINED; WILL CONT PLAN OF CARE; AWAITING D/C; WILL CONT TO MONITOR
[2019-10-10 20:00] VITALS: BP 126/66
--- NOTE | 2019-10-10 20:20 | NUR ---
MS RN NOTES SPOKE WITH LILLIAN FROM [facility], SAID THEY WILL DELIVER PT AND WOUND CARE BELONGINGS FOR PATIENT TO HER HOME TOMORROW MORNING; PATIENT IS AWARE; PATIENT WAS INFORMED THEY WILL BE CALLING HER TOMORROW TO CONFIRM HER AVAILABILITY
[2019-10-10 20:24] VITALS: BP 126/66
--- NOTE | 2019-10-10 21:08 | NUR ---
MS RN NOTES OXYGEN TANK RECEIVED; AWAITING FOR PATIENT'S TO FOR DISCHARGE; ATTEMPTED TO CONTACT , NO ANSWER; PER PARK MAINTENANCE TECHNICIAN, WENT BACK HOME; HOMEHEALTH WORKER WILL DELIVER BELONGINGS TO PATIENT HOME TOMORROW AM; NUMBER PROVIDED; WILL CONFIRM DISCHARGE
--- NOTE | 2019-10-10 22:00 | NUR ---
MS RN NOTES PATIENT REFUSING SCHEDULED MEDS AND ACCU CHECK SHE WILL BE GOING HOME SOON; RISKS AND BENEFITS DISCUSSED WITH PATIENT; PATIENT AWARE AND REPORTED SHE JUST WANTS TO GO HOME; AWAITING PATIENT'S
--- NOTE | 2019-10-10 22:46 | NUR ---
MS RN NOTES L HAND # 22 IV SITE REMOVED; IV TIP INTACT AND PATENT; DISCHARGE PAPERWORK DISCUSSED WITH PATIENT; PATIENT SIGNED OFF; PER AM SHIFT, PATIENT IS OKAY TO GO HOME WITH LIBORIO WILKINS D/T IV ABX; STILL WAITING FOR
--- NOTE | 2019-10-10 22:56 | NUR ---
PATIENT ON 4LPM VIA NC
--- NOTE | 2019-10-10 23:53 | NUR ---
RN NOTES CONTACTED X3 TIMES, NOT ANSWERING PHONE CALLS; WILL CONT TO MONITOR
[2019-10-11] VITALS (8 sets, daily range): BP systolic 134–186; BP diastolic 66–81
--- NOTE | 2019-10-11 01:15 | NUR ---
MS RN NOTES UNABLE TO REACH ; WILL INFORM RIBBON TIER MD REGARDING THIS SITUATION;
--- NOTE | 2019-10-11 01:26 | NUR ---
MS RN NOTES NURSING PHARMACY DELIVERY DRIVER AWARE OF PATIENT STILL BEING IN HOSPITAL; PER NURSING PHARMACY DELIVERY DRIVER, TRY TO REACH SINCE IT IS LATE AND PATIENT DOES NOT HAVE ANY KEYS TO ENTER THE BUILDING; PATIENT IS ALSO ON 4LPM VIA NC; PER NURSING PHARMACY DELIVERY DRIVER, IT IS UNSAFE TO SEND THE PATIENT VIA TAXI DROP OFF AT THIS TIME; WILL KEEP TRYING TO CALL PATIENT'S
--- NOTE | 2019-10-11 01:34 | NUR ---
MS RN NOTES PER MD OKAY TO KEEP PATIENT OVER NIGHT; WILL CONT TO MONITOR PATIENT
[2019-10-11] MEDS: BLOOD SUGAR DIAGNOSTIC 1 EACH STRIP IN SCH ×4 (06:32→21:26)
--- NOTE | 2019-10-11 06:36 | NUR ---
MS RN CLOSING NOTES PATIENT RESTING IN BED COMFORTABLY; A/OX4 (SOMETIMES FORGETFUL); BREATHING EVEN AND UNLABORED; PATIENT TOLERATING 4LPM VIA NC; NO SOB NOTED; NO DISTRESS NOTED; PATIENT ABLE TO MAKE NEEDS KNOWN; ISOLATION PRECAUTIONS MAINTAINED; SAFETY PRECAUTIONS IMPLEMENTED; BED LOCKED IN LOW POSITION; SIDE RAILSX2; CALL LIGHT WITHIN REACH; WILL INFORM ONCOMING NURSE THAT PATIENT WAS SUPPOSED TO BE DISCHARGED LAST NIGHT BUT DID NOT PIZZA BAKER ANY CALLS; MD AWARE, AND NURSING WILDLIFE OFFICER AWARE; PATIENT STAYED OVER NIGHT; WILL ENDORSE ROSA ELENA TO ONCOMING SHIFT;
--- NOTE | 2019-10-11 07:21 | NUR ---
MS RN NOTES PATIENT RECEIVED IN BED SLEEPING EASILY AWAKEN BY NAME AND LIGHT TOUCH. ISOLATION PRECAUTIONS IN PLACE. ALERT AND ORIENTED X 4. PATIENT ON NASAL CANNULA 4L, TOLERATING SETTINGS, WITH NO SIGNS OF RESPIRATORY DISTRESS, EVEN NON-LABORED BREATHING AND NO SOB NOTED. PER NIGHTSHIFT, PATIENT WAS SUPPOSED TO BE DISCHARGE, AWAITING FOR TO CAR SALTER PATIENT WILL FOLLOW UP WITH . LEFT UPPER ARM MIDLINE INTACT AND PATENT. SAFETY PRECAUTIONS IMPLEMENTED WITH BED LOCKED, BED IN THE LOWEST POSITION, BED ALARM ON, BILATERAL SIDE RAILS UP, AND CALL LIGHT WITHIN EASY REACH OF THE PATIENT. WILL CONTINUE TO MONITOR PATIENT.
--- NOTE | 2019-10-11 08:30 | NUR ---
MS RN NOTES SPOKE WITH ON THE PHONE, SOFIA, PHONE NUMBER: , STATING HE WILL COME AND PEST CONTROLLER HIS PATIENT AROUND 1000. SOFIA, , ALSO WANTED TO SPEAK WITH THE PATIENT, TRANSFERRED THE CALL TO PATIENT ROOM. WILL CONTINUE TO MONITOR PATIENT.
[2019-10-11] MEDS: MYCOPHENOLATE MOFETIL 250 MG CAPSULE PO SCH ×2 (09:17→21:05)
[2019-10-11] MEDS: CITRIC ACID/SODIUM CITRATE (BICITRA)15 ML UDC PO SCH ×4 (09:17→21:05)
[2019-10-11] MEDS: AMLODIPINE BESYLATE 10 MG TABLET PO SCH (09:17)
[2019-10-11] MEDS: METOPROLOL SUCCINATE 50 MG TAB.SR.24H PO SCH (09:18)
[2019-10-11 09:27] LABS: BASOPHILS # (AUTO) 0.1 /CMM (0.0-0.2); BASOPHILS % (AUTO) 1.6 % (0.0-2.0); EOSINOPHILS % (AUTO) 0.9 % (0.0-6.0); HEMATOCRIT 22 % (33-45); HEMOGLOBIN 7.1 g/dL (11.5-14.8); LYMPHOCYTES # (AUTO) 0.5 /CMM (0.8-4.8); LYMPHOCYTES % (AUTO) 6.9 % (20.0-44.0); MEAN CORPUSCULAR HGB CONC 32 g/dl (31.0-36.0); MEAN CORPUSCULAR VOLUME 88 fL (82-100); MONOCYTES # (AUTO) 0.6 /CMM (0.1-1.30); MONOCYTES % (AUTO) 9.1 % (2.0-12.0); NEUTROPHILS # (AUTO) 5.5 /CMM (1.8-8.9); NEUTROPHILS % (AUTO) 81.5 % (43.0-81.0); PLATELET COUNT (AUTO) 287 /CMM (150-450); RED BLOOD CELL COUNT(AUTO) 2.51 MIL/uL (4.0-5.2); WHITE BLOOD COUNT (AUTO) 6.8 K/uL (4.3-11.0)
[2019-10-11 09:59] LABS: ALANINE AMINOTRANSFERASE 20 U/L (12-78); ALBUMIN 2.9 g/dL (3.4-5.0); ALKALINE PHOSPHATASE 81 U/L (46-116); ASPARTATE AMINOTRANSFERASE 24 U/L (15-37); BILIRUBIN,TOTAL 0.5 mg/dL (0.2-1.0); CALCIUM, SERUM 6.9 mg/dL (8.5-10.1); CARBON DIOXIDE 30 mmol/L (21-32); CHLORIDE 102 mmol/L (98-107); CREATININE 4.3 mg/dL (0.6-1.3); GLUCOSE 120 mg/dL (74-106); MAGNESIUM 2.2 mg/dL (1.8-2.4); PHOSPHORUS 5.4 mg/dL (2.5-4.9); POTASSIUM 4.5 mmol/L (3.5-5.1); SODIUM SERUM 143 mmol/L (136-145); TOTAL PROTEIN, SERUM 6.4 g/dL (6.4-8.2); UREA NITROGEN, BLOOD 65 mg/dL (7-18)
--- NOTE | 2019-10-11 10:00 | NUR ---
MS RN NOTES SPOKE WITH PATIENT AND PATIENT'S OVER THE PHONE. PATIENT STATING SHE DOES NOT WANT TO GO HOME. NOTIFIED EMILE, MDS RN. WILL FOLLOW UP WITH MD TINY FLOWERS.
--- NOTE | 2019-10-11 12:37 | NUR ---
MS RN NOTES PATIENT'S BLOOD SUGAR 122, PER SLIDING SCALE NO INSULIN COVERAGE NEEDED. WILL CONTINUE TO MONITOR PATIENT.
--- NOTE | 2019-10-11 16:25 | NUR ---
MS RN NOTES SPOKE WITH PUBLIC SAFETY TEACHER, EMILE, AND PATIENT WILL BE DISCHARGED IN THE AM, SOFIA AWARE OF DISCHARGE PLAN. WILL CONTINUE TO MONITOR PATIENT.
[2019-10-11] MEDS: Sodium Bicarbonate 100 MEQ in IV D5/0.45 NACL 1,000 ML IV PRN ×2 (16:28→22:48)
[2019-10-11] MEDS: INSULIN REGULAR, HUMAN 100 UNIT/ML 3 ML VIAL SQ PRN ×2 (17:34→21:27)
--- NOTE | 2019-10-11 18:55 | NUR ---
MS RN NOTES PATIENT IN BED RESTING COMFORTABLY. ON NASAL CANNULA, 4L, TOLERATING SETTING WELL, WITH NO SIGNS OF RESPIRATORY DISTRESS AND NO SOB NOTED. LEFT UPPER ARM MIDLINE INTACT AND PATENT. WOUND TREATMENTS DONE AND DRESSINGS INTACT. PROVIDED COMFORT MEASURES TO PATIENT AND MET ALL OF PATIENT'S NEEDS. SAFETY PRECAUTIONS IMPLEMENTED WITH BED LOCKED, BILATERAL SIDE RAILS UP, BED ALARM ON, BED IN THE LOWEST POSITION, AND CALL LIGHT WITHIN EASY REACH OF THE PATIENT. WILL ENDORSE PLAN OF CARE TO UPCOMING NIGHTSHIFT NURSE.
--- NOTE | 2019-10-11 19:00 | NUR ---
rn ms opening notes received patient in bed sleeping easily arousable, verbally responsive , 0n 4L via nc appears to be tolerating well at this time, pt states shes "okay right now", left upper arm midline is intact and patent no redness no infiltration present , ivf running as ordered, open shingles to back area with dressing in place, oriented to staff and call light and kept within reach, safety precautions in place, low bed and locked, all needs attended at this time, will continue to monitor.
[2019-10-11] MEDS: CEFEPIME 2 GM in IV D5W 100 ML IV SCH (20:58)
--- NOTE | 2019-10-11 21:00 | NUR ---
rn ms notes noted patient appears restless at this time, per patient states she "feels okay" repositioned, sat patient up with head of bed elevated, noted patient with slight increased respirations and restless. on continuous o2 4 l via nc placed order for continuous pulse ox.
--- NOTE | 2019-10-11 21:24 | NUR ---
rn ms notes received pulse ox placed, currently on 4L via nc o2 sat ranging between 91-96% noted patient with labored breathing. asked patient if she feels sob states " yes". current vs 143/67,74,95%4l via nc, 18 respirations, temp taken 99.0 retaken 98.0 noted accessory muscle use. called Dr. levy to notify of change of condition.
--- NOTE | 2019-10-11 21:34 | NUR ---
rn ms notes spoke to dr. lugo with new order for abg stat and chest xray
--- NOTE | 2019-10-11 22:00 | NUR ---
rn ms notes Dr. brittney levy at bedside fo assessment, rectal temp taken 99.9. cooling measure initiated.
[2019-10-11] MEDS: ACETAMINOPHEN 325 MG TABLET PO PRN (22:11)
--- NOTE | 2019-10-11 22:11 | NUR ---
rn ms notes tylenol prn given for fever new order received to transfer patient to icu for bipap , increase sob. called cloth grader supervisor need icu bed patient to transfer to room 262.
--- NOTE | 2019-10-11 22:29 | NUR ---
Received report from ARA Andrade for transfer.
--- NOTE | 2019-10-11 22:29 | NUR ---
rn ms notes covid rapid test done as recommended. gave report edgar magana rn in icu.
[2019-10-11] MEDS ORDERED: VANCOMYCIN 1 GM in IV NS 0.9% 250 ML IV ONE (22:32)
--- NOTE | 2019-10-11 22:38 | NUR ---
FARMWORKER GENERAL INITIAL NOTES: Pt arrived via gurney accompanied by RN and RT. On bipap machine 16/5, 20 60% FiO2. On isolation for shingles and R/O Covid. Hooked up to monitors, oriented to room and call light within reach. Will continue to monitor.
--- NOTE | 2019-10-11 22:40 | NUR ---
rn ms notes patient transferred to icu via acls protocol. tele monitor in place sr 76. currently on 8 l via simple mask 02 sat 91-95%. all belongings, medications and chart transferred with patient, patient remains alert and oriented x4 at this time. transferred to room 262. o2 tank for patient to take home was also transferred with patient to icu.
--- NOTE | 2019-10-11 23:24 | NUR ---
ROBOTICS SYSTEMS ENGINEER NOTE: Rec'd order from Dr. Gallo to insert guzmán cath. Guzmán cath 14Fr inserted. Draining yellow urine via gravity. Will continue to monitor.
[2019-10-12] VITALS (76 sets, daily range): BP systolic 113–183; BP diastolic 58–103
[2019-10-12] MEDS ORDERED: VANCOMYCIN 1 GM VIAL ONE (00:06)
[2019-10-12] MEDS ORDERED: BUMETANIDE INJ 6 MG in IV NS 0.9% 36 ML IV ONE (01:30)
[2019-10-12] MEDS ORDERED: BUMETANIDE INJ 0.25 MG/ML VIAL IV ONE (01:50)
[2019-10-12] MEDS ORDERED: BUMETANIDE INJ 0.25 MG/ML VIAL ONE ×3 (01:51→23:46)
[2019-10-12] MEDS: hydrALAZINE HCL 25 MG TABLET PO PRN (04:40)
[2019-10-12] MEDS ORDERED: hydrALAZINE HCL IV 20 MG VIAL IV PRN (06:30)
--- NOTE | 2019-10-12 06:50 | NUR ---
HERBARIUM CURATOR CLOSING NOTES: Pt remains on Bipap tolerating settings well. No respiratory distress noted throughout shift. No acute changes noted throughout shift. LIBORIO midline patent and infusing D51/2NS with Na HCO3 at 75ml/hr. and Bumex 6mg at 10ml/hr. Kept clean and dry. All meds administered as ordered. Safety measures in place. Will endorse to AM nurse for ROSA ELENA.
[2019-10-12] MEDS ORDERED: FEE PK DOSING 1 MIN EA MC ONE (07:09)
[2019-10-12] MEDS: BLOOD SUGAR DIAGNOSTIC 1 EACH STRIP IN SCH ×4 (07:57→22:30)
--- NOTE | 2019-10-12 07:59 | NUR ---
PUBLIC SPEAKING TEACHER NOTE PATIENT IN BED SLEEPING COMFORTABLY BUT EASILY ABUSABLE TO VERBAL AND TACITLY STIMULI, CHEST X RAY DONE AT BEDSIDE , ON BIPAP SETTING, ORDERED WITH BUCKLEY CATH TO GRAVITY WITH YELLOW COLOR URINE, ON IVF ORDERED, ALL NEEDS ATTENDED
[2019-10-12] MEDS: CITRIC ACID/SODIUM CITRATE (BICITRA)15 ML UDC PO SCH ×4 (08:27→20:15)
[2019-10-12] MEDS: AMLODIPINE BESYLATE 10 MG TABLET PO SCH (08:28)
[2019-10-12] MEDS: METOPROLOL SUCCINATE 50 MG TAB.SR.24H PO SCH (08:29)
[2019-10-12] MEDS: MYCOPHENOLATE MOFETIL 250 MG CAPSULE PO SCH ×2 (08:29→20:15)
--- NOTE | 2019-10-12 08:30 | NUR ---
WIRE WRAPPER MACHINE OPERATOR NOTE BIPAP OFF , ON 4L NC ,SAT 94-95% ,WILL MONITOR
--- NOTE | 2019-10-12 08:50 | NUR ---
RN NOTES RECEIVED REPORT FROM ARA BURRIS FOR CONTINUITY OF CARE. PATIENT ALERT AND ORIENTED X4, ABLE TO MAKE NEEDS KNOWN. ON OXYGEN SUPPORT WITH OXYGEN 4LPM VIA NASAL CANNULA, SATING 94%. DENIES ANY SHORTNESS OF BREATH AT THIS TIME. ENCOURAGE TO CALL FOR HELP/ ASSISTANCE, CALL LIGHT WITHIN REACH. SAFETY MEASURES IN PLACE. WILL CONTINUE TO MONITOR PATIENT ACCORDINGLY
--- NOTE | 2019-10-12 08:51 | NUR ---
EXPENSE CLERK NOTE PER DR SAMSON EKG WILL BE DONE ALSO PLACED ON 4L NC BY RT ,SAT 95%
[2019-10-12] MEDS ORDERED: BUMETANIDE INJ 16 MG in IV NS 0.9% 16 ML IV ONE (09:00)
--- NOTE | 2019-10-12 09:00 | NUR ---
IT PROGRAMMER ANALYST NOTE REPORT GIVEN TO TRISTIN BULLOCK
[2019-10-12 09:25] LABS: BASOPHILS # (AUTO) 0.1 /CMM (0.0-0.2); BASOPHILS % (AUTO) 1.6 % (0.0-2.0); EOSINOPHILS % (AUTO) 1.9 % (0.0-6.0); HEMATOCRIT 21 % (33-45); LYMPHOCYTES # (AUTO) 0.5 /CMM (0.8-4.8); LYMPHOCYTES % (AUTO) 8.2 % (20.0-44.0); MEAN CORPUSCULAR HGB CONC 32 g/dl (31.0-36.0); MEAN CORPUSCULAR VOLUME 89 fL (82-100); MONOCYTES # (AUTO) 0.6 /CMM (0.1-1.30); MONOCYTES % (AUTO) 10.1 % (2.0-12.0); NEUTROPHILS # (AUTO) 4.5 /CMM (1.8-8.9); NEUTROPHILS % (AUTO) 78.2 % (43.0-81.0); PLATELET COUNT (AUTO) 305 /CMM (150-450); RED BLOOD CELL COUNT(AUTO) 2.33 MIL/uL (4.0-5.2); WHITE BLOOD COUNT (AUTO) 5.8 K/uL (4.3-11.0)
[2019-10-12 09:32] LABS: CALCIUM, SERUM 6.6 mg/dL (8.5-10.1); CARBON DIOXIDE 34 mmol/L (21-32); CHLORIDE 102 mmol/L (98-107); CREATININE 4.3 mg/dL (0.6-1.3); GLUCOSE 128 mg/dL (74-106); POTASSIUM 3.9 mmol/L (3.5-5.1); SODIUM SERUM 144 mmol/L (136-145); UREA NITROGEN, BLOOD 63 mg/dL (7-18)
[2019-10-12 09:37] LABS: ALANINE AMINOTRANSFERASE 20 U/L (12-78); ALBUMIN 2.8 g/dL (3.4-5.0); ALKALINE PHOSPHATASE 70 U/L (46-116); ASPARTATE AMINOTRANSFERASE 23 U/L (15-37); BILIRUBIN,TOTAL 0.6 mg/dL (0.2-1.0); PHOSPHORUS 5.3 mg/dL (2.5-4.9); TOTAL PROTEIN, SERUM 6.2 g/dL (6.4-8.2)
[2019-10-12 09:44] LABS: HEMOGLOBIN 6.6 g/dL (11.5-14.8)
[2019-10-12] MEDS ORDERED: IV NS 0.9% 250 ML IV PRN (10:00)
--- NOTE | 2019-10-12 10:29 | NUR ---
LAMINATOR HAND NOTE PER DR TINY BOWLES TO GIVE 2UNIT PRBC DUE TO HG 6.6 , PATIENT SIGHED CONSENT FOR BLOOD TRANSFUSION
[2019-10-12 12:34] LABS: EOSINOPHILS % (MANUAL) 2 % (0-4); LYMPHOCYTES % (MANUAL) 6 % (16-48); MONOCYTES % (MANUAL) 6 % (0-11.0); NEUTROPHILS % (MANUAL) 86 (42-76)
[2019-10-12 15:55] LABS: ABG BASE EXCESS 5.3 mmol/L; ABG OXYGEN SATURATION 92.3 % (92.0-98.5); ABG PCO2 39.7 mmHg (35.0-45.0); ABG PH 7.484 (7.350-7.450); ABG PO2 62.8 mmHg (75.0-100.0); AaDO2 212.9 mmHg; COHb 0.8 % (0.5-1.5); O2Hb 91.6 % (94.0-97.0); SITE, ABG Right Radial; VENT MODE, BG Simple Mask
[2019-10-12 15:55] LABS: ABG BASE EXCESS 4.1 mmol/L; ABG PH 7.474 (7.350-7.450); ABG PO2 55.2 mmHg (75.0-100.0); AaDO2 156.2 mmHg; COHb 1.1 % (0.5-1.5); MetHb 0.3 % (0.0-1.5); O2Hb 87.8 % (94.0-97.0); SITE, ABG Right Radial; VENT MODE, BG nasal cannula
[2019-10-12 15:55] LABS: ABG BASE EXCESS 2.7 mmol/L; ABG OXYGEN SATURATION 94.6 % (92.0-98.5); ABG PCO2 38.1 mmHg (35.0-45.0); ABG PH 7.463 (7.350-7.450); ABG PO2 75.2 mmHg (75.0-100.0); AaDO2 310.7 mmHg; COHb 0.9 % (0.5-1.5); MetHb 0.3 % (0.0-1.5); O2Hb 93.5 % (94.0-97.0); SITE, ABG Right Radial; VENT MODE, BG ST 16/5 R
--- NOTE | 2019-10-12 18:00 | NUR ---
RN NOTES BLOOD TRANSFUSION DONNE. PATIENT ABLE TO TOLERATE THE PROCEDURE WELL. NO ADVERSE REACTION NOTED 1830: WENT TO LAB TO OBTAIN SECOND BAG OF PRBC BUT ORIGINAL ORDER WAS ONLY FOR ONE UNIT. ORDER FOR ANOTHER UNIT PLACED IN. ENDORSED TO INCOMING SHIFT.
--- NOTE | 2019-10-12 19:30 | NUR ---
RN NOTES RECEIVED PATIENT IN BED RESTING COMFORTABLY. RESPONSIVE TO VERBAL AND TACTILE STIMULI. BREATHING NORMAL NO SOB NOTED. ON OXYGEN 5L VIA NC SATURATING 98%. TELE MONITOR SHOWS SR. LIBORIO MIDLINE IN PLACE INTACT FLUSHING WELL. ABD SOFT AND NON DISTENDED. F/C INTACT YELLOW URINE RUNNING TO GRAVITY. ONGOING SKIN TREATMENT SEE FLOW SHEET FOR SKIN ASSESSMENT. SAFETY MEASURES IN PLACE, CALL LIGHT WITHIN REACH. WILL CONT TO MONITOR.
[2019-10-12] MEDS: CEFEPIME 2 GM in IV D5W 100 ML IV SCH (20:15)
[2019-10-12] MEDS: ACETAMINOPHEN 325 MG TABLET PO PRN (22:11)
[2019-10-13] VITALS (53 sets, daily range): BP systolic 67–183; BP diastolic 47–119
[2019-10-13] MEDS ORDERED: BUMETANIDE INJ 0.25 MG/ML VIAL IV ONE
[2019-10-13] MEDS ORDERED: BUMETANIDE INJ 6 MG in IV NS 0.9% 36 ML IV ONE ×2
[2019-10-13] MEDS: NIFEdipine XL (30MG) 30 MG TAB PO SCH ×2 (01:09→08:57)
--- NOTE | 2019-10-13 02:25 | NUR ---
RN NOTES STARTED BLOOD TRANSFUSION AT 2100 DR NOTIFIED PATIENT'S TEMP-99.3. STOPPED DUE TO SUSPECTED TRANSFUSION REACTION. DR. VILLANUEVA NOTIFIED, PER DR. VILLANUEVA IT IS NOT A TRANSFUSION REACTION IT IS CHF. PATIENT IS OVER LOADED. CONTINUES TRANSFUSION TIL 4 HOUR ROSAMARIA AND STOP GIVING ONLY HALF UNIT. NOTIFIED DR. VILLANUEVA THAT HALF THE UNIT WAS GIVEN PRIOR TO EXPIRATION. PER DR. VILLANUEVA CHECK H&H IN AM.
[2019-10-13] MEDS ORDERED: LORAZEPAM INJ 2 MG/ML VIAL IV ONE (04:00)
--- NOTE | 2019-10-13 04:42 | NUR ---
RT unable to place pt on bipap. pt agitated and uncooperative. notified faby rojas
[2019-10-13 05:05] LABS: BASOPHILS # (AUTO) 0.2 /CMM (0.0-0.2); BASOPHILS % (AUTO) 1.9 % (0.0-2.0); EOSINOPHILS % (AUTO) 3.3 % (0.0-6.0); HEMATOCRIT 31 % (33-45); HEMOGLOBIN 10.1 g/dL (11.5-14.8); LYMPHOCYTES # (AUTO) 0.6 /CMM (0.8-4.8); LYMPHOCYTES % (AUTO) 6.6 % (20.0-44.0); MEAN CORPUSCULAR HGB CONC 33 g/dl (31.0-36.0); MEAN CORPUSCULAR VOLUME 88 fL (82-100); MONOCYTES % (AUTO) 10.8 % (2.0-12.0); NEUTROPHILS # (AUTO) 6.8 /CMM (1.8-8.9); NEUTROPHILS % (AUTO) 77.4 % (43.0-81.0); PLATELET COUNT (AUTO) 406 /CMM (150-450); RED BLOOD CELL COUNT(AUTO) 3.48 MIL/uL (4.0-5.2); WHITE BLOOD COUNT (AUTO) 8.8 K/uL (4.3-11.0)
[2019-10-13 05:42] LABS: ALANINE AMINOTRANSFERASE 17 U/L (12-78); ALBUMIN 2.8 g/dL (3.4-5.0); ALKALINE PHOSPHATASE 78 U/L (46-116); ASPARTATE AMINOTRANSFERASE 24 U/L (15-37); BILIRUBIN,TOTAL 0.9 mg/dL (0.2-1.0); CARBON DIOXIDE 30 mmol/L (21-32); CHLORIDE 102 mmol/L (98-107); CREATININE 4.5 mg/dL (0.6-1.3); GLUCOSE 109 mg/dL (74-106); PHOSPHORUS 5.7 mg/dL (2.5-4.9); POTASSIUM 3.7 mmol/L (3.5-5.1); SODIUM SERUM 145 mmol/L (136-145); TOTAL PROTEIN, SERUM 6.6 g/dL (6.4-8.2); UREA NITROGEN, BLOOD 63 mg/dL (7-18)
[2019-10-13 05:50] LABS: FERRITIN 798 ng/mL (8-388)
--- NOTE | 2019-10-13 06:58 | NUR ---
RN NOTES PATIENT RESTING IN BED COMFORTABLY. BREATHING NORMAL NO SOB NOTED. RESPIRATION EVEN NON LABORED. ON OXYGEN 5L VIA NC SATURATING 99%. DR. VILLANUEVA SAW THE PATIENT ORDER TO PUT PATIENT BACK ON BIPAP, PATIENT AGITATED AND UNCOOPERATIVE, ATIVAN GIVEN ORDERED. DR. VILLANUEVA NOTIFIED. BLOOD PRESSURE NOTED HIGH NEW ORDER TO GIVE BUMEX GIVEN ORDERED. URINE OUTPUT 1200ML. LIBORIO MIDLINE IN PLACE INTACT FLUSHING WELL. PROCARDIA WAS APPEAR LATE ON MAY NON ADMINISTERED ITS TOO CLOSE TO NEXT DOSE. ABD SOFT AND NON DISTENDED. SAFETY MEASURES IN PLACE, CALL LIGHT WITHIN REACH. WILL ENDORSE TO AM NURSE FOR ROSA ELENA.
--- NOTE | 2019-10-13 07:30 | NUR ---
RN NOTES RECEIVED PATIENT ASLEEP BUT IS EASILY AWAKEN BY VERBAL STIMULI. ORIENTED X1-2, ABLE TO RESPOND APPROPRIATELY BUT WITH EPISODE OF CONFUSION AND FLIGHT IDEAS. CONSTANT REORIENTATION NEEDED. BREATHING UNLABORED, SATING 100% ON OXYGEN 5LPM VIA NASAL CANNULA. WITH IV ACCESS ON THE LEJ IN PLACE, DRESSING DRY AND INTACT, SALINE LOCK. BUCKLEY CATHETER IN PLACE DRAINING VIA GRAVITY TO CLEAR YELLOW URINE. HOB ELEVATED. SAFETY MEASURES IN PLACE. BED IN LOW AND LOCKED POSITION. PATIENT ENCOURAGE TO VERBALIZE FEELINGS AND CONCERNS, TO CALL FOR ASSISTANCE/ HELP. CALL LIGHT WITHIN REACH. WILL CONTINUE TO MONITOR PATIENT ACCORDINGLY
[2019-10-13 07:49] LABS: IRON, SERUM 35 ug/dl (50-175); TOTAL IRON BINDING CAPACITY 162 ug/dl (250-450)
[2019-10-13] MEDS: BLOOD SUGAR DIAGNOSTIC 1 EACH STRIP IN SCH ×4 (08:42→22:05)
[2019-10-13] MEDS: CITRIC ACID/SODIUM CITRATE (BICITRA)15 ML UDC PO SCH (08:56)
[2019-10-13] MEDS: AMLODIPINE BESYLATE 10 MG TABLET PO SCH (08:57)
[2019-10-13] MEDS: METOPROLOL SUCCINATE 50 MG TAB.SR.24H PO SCH (08:57)
[2019-10-13] MEDS: MYCOPHENOLATE MOFETIL 250 MG CAPSULE PO SCH ×2 (08:57→20:35)
[2019-10-13] MEDS: hydrALAZINE HCL 25 MG TABLET PO PRN (10:53)
--- NOTE | 2019-10-13 14:10 | NUR ---
rn notes patient transferred to [facility] via acls protol. bedside report given to ARA Hull. Hands off
--- NOTE | 2019-10-13 14:30 | NUR ---
TRANSFER FROM ICU RECEIVED PT TRANSPORTED BY ICU NURSES, RECEIVED BEDSIDE REPORT. PT IS AWAKE, ALERT AND ORIENTED X2, PERIODS OF CONFUSION AND FORGETFULNESS. ABLE TO RESPOND APPROPRIATELY BUT WITH EPISODE OF CONFUSION AND FLIGHT IDEAS. CONSTANT REORIENTATION NEEDED. NO CARDIAC OR RESPIRATORY DISTRESS NOTED. ON O2 AT 5L/MIN VIA NC. BREATHING UNLABORED, SATING 98%. IV ACCESS NOTED ON THE LEJ IN PLACE, DRESSING DRY AND INTACT, SALINE LOCK. BUCKLEY CATHETER IN PLACE DRAINING VIA GRAVITY TO CLEAR YELLOW URINE. HOB ELEVATED. SAFETY MEASURES IN PLACE. BED IN LOW AND LOCKED POSITION. PATIENT ENCOURAGE TO VERBALIZE FEELINGS AND CONCERNS, TO CALL FOR ASSISTANCE/ HELP. CALL LIGHT WITHIN REACH. WILL CONTINUE TO MONITOR.
--- NOTE | 2019-10-13 18:48 | NUR ---
MANAGER PHP CLOSING NOTES PT IS AWAKE, ALERT AND ORIENTED X2, PERIODS OF CONFUSION AND FORGETFULNESS. ABLE TO RESPOND APPROPRIATELY BUT WITH EPISODE OF CONFUSION AND FLIGHT IDEAS. CONSTANT REORIENTATION NEEDED. NO CARDIAC OR RESPIRATORY DISTRESS NOTED. ON O2 AT 5L/MIN VIA NC. BREATHING UNLABORED, SATING AT 98%. IV ACCESS NOTED ON THE L EXT JUGULAR AND L UPPER ARM MIDLINE IN PLACE, DRESSING DRY AND INTACT, SALINE LOCK. NO S/S OF INFECTION OR INFILTRATION NOTED. BUCKLEY CATHETER IN PLACE DRAINING VIA GRAVITY TO CLEAR YELLOW URINE. HOB ELEVATED. SAFETY MEASURES IN PLACE. BED IN LOW AND LOCKED POSITION. PATIENT ENCOURAGE TO VERBALIZE FEELINGS AND CONCERNS, TO CALL FOR ASSISTANCE/ HELP. CALL LIGHT WITHIN REACH. WILL CONTINUE TO MONITOR.
--- NOTE | 2019-10-13 19:30 | NUR ---
TELE/RN NOTES PT RECEIVED AWAKE, A/OX3. ON 5LPM O2 VIA NC, BREATHING EVEN AND UNLABORED. DENIES SOB AND PAIN AT THIS TIME. LIBORIO MIDLINE AND LEFT EJ PATENT AND INTACT.BUCKLEY IN PLACE AND DRAINING TO GRAVITY. HOB ELEVATED. BED IN LOW/LOCKED POSITION WITH CALL LIGHT IN REACH. SIDE RAILS UPX3, ON TELE MONITOR SHOWING NSR. BED ALARM ON FOR SAFETY. WILL CONTINUE TO MONITOR
[2019-10-13] MEDS: CEFEPIME 2 GM in IV D5W 100 ML IV SCH (20:35)
[2019-10-13] MEDS: INSULIN REGULAR, HUMAN 100 UNIT/ML 3 ML VIAL SQ PRN (21:52)
[2019-10-14] VITALS: BP 123/59
[2019-10-14] MEDS ORDERED: VANCOMYCIN 0.75 GM in IV D5W 250 ML IV SCH ×2
[2019-10-14 04:00] VITALS: BP 123/56
[2019-10-14] MEDS: INSULIN REGULAR, HUMAN 100 UNIT/ML 3 ML VIAL SQ PRN (07:06)
[2019-10-14] MEDS: BLOOD SUGAR DIAGNOSTIC 1 EACH STRIP IN SCH ×3 (07:09→12:00)
--- NOTE | 2019-10-14 07:15 | NUR ---
TELE/RN CLOSING NOTES PT RESTING COMFORTABLY. ON 5LPM O2 VIA NC, BREATHING EVEN AND UNLABORED. IN NO ACUTE DISTRESS. ON TELE MONITOR NSR HR 70'S. BUCKLEY IN PLACE AND DRAINING TO GRAVITY. LIBORIO MIDLINE PATENT AND INTACT BUT WITH POSITIONAL RESISTANCE. LEFT EJ PATENT AND INTACT. BED IN LOW/LOCKED POSITION WITH CALL LIGHT IN REACH. SIDE RAILS UPX3. BED ALARM ON FOR SAFETY. ENDORSED TO DAY SHIFT RN ROSA ELENA.
--- NOTE | 2019-10-14 07:54 | NUR ---
TELE/RN OPENING NOTES PT RESTING COMFORTABLY. ON 5LPM O2 VIA NC, BREATHING EVEN AND UNLABORED. IN NO ACUTE DISTRESS. ON TELE MONITOR NSR HR 70'S. BUCKLEY IN PLACE AND DRAINING TO GRAVITY. LIBORIO MIDLINE PATENT AND INTACT BUT WITH POSITIONAL RESISTANCE. LEFT EJ PATENT AND INTACT. BED IN LOW/LOCKED POSITION WITH CALL LIGHT IN REACH. SIDE RAILS UPX3. BED ALARM ON FOR SAFETY.
[2019-10-14 08:00] VITALS: BP 129/58
[2019-10-14 08:24] LABS: BASOPHILS # (AUTO) 0.1 /CMM (0.0-0.2); EOSINOPHILS % (AUTO) 6.4 % (0.0-6.0); HEMATOCRIT 28 % (33-45); HEMOGLOBIN 9.3 g/dL (11.5-14.8); LYMPHOCYTES # (AUTO) 0.5 /CMM (0.8-4.8); MEAN CORPUSCULAR HGB CONC 33 g/dl (31.0-36.0); MEAN CORPUSCULAR VOLUME 89 fL (82-100); MONOCYTES # (AUTO) 0.8 /CMM (0.1-1.30); NEUTROPHILS # (AUTO) 5.6 /CMM (1.8-8.9); NEUTROPHILS % (AUTO) 73.6 % (43.0-81.0); PLATELET COUNT (AUTO) 422 /CMM (150-450); RED BLOOD CELL COUNT(AUTO) 3.19 MIL/uL (4.0-5.2); WHITE BLOOD COUNT (AUTO) 7.6 K/uL (4.3-11.0)
[2019-10-14 08:37] LABS: ALANINE AMINOTRANSFERASE 16 U/L (12-78); ALBUMIN 2.4 g/dL (3.4-5.0); ALKALINE PHOSPHATASE 69 U/L (46-116); ASPARTATE AMINOTRANSFERASE 18 U/L (15-37); BILIRUBIN,TOTAL 0.6 mg/dL (0.2-1.0); CALCIUM, SERUM 6.7 mg/dL (8.5-10.1); CARBON DIOXIDE 32 mmol/L (21-32); CHLORIDE 99 mmol/L (98-107); CREATININE 4.8 mg/dL (0.6-1.3); GLUCOSE 139 mg/dL (74-106); MAGNESIUM 1.9 mg/dL (1.8-2.4); PHOSPHORUS 5.6 mg/dL (2.5-4.9); POTASSIUM 3.7 mmol/L (3.5-5.1); SODIUM SERUM 141 mmol/L (136-145); TOTAL PROTEIN, SERUM 5.8 g/dL (6.4-8.2); UREA NITROGEN, BLOOD 68 mg/dL (7-18)
[2019-10-14] MEDS: MYCOPHENOLATE MOFETIL 250 MG CAPSULE PO SCH (08:55)
[2019-10-14] MEDS: AMLODIPINE BESYLATE 10 MG TABLET PO SCH (08:56)
[2019-10-14] MEDS: METOPROLOL SUCCINATE 50 MG TAB.SR.24H PO SCH (08:57)
[2019-10-14] MEDS: NIFEdipine XL (30MG) 30 MG TAB PO SCH (10:19)
[2019-10-14 20:00] VITALS: BP 116/47
== END 2019-10-14 16:35 | disposition home health service (06) | DRG 871 ==
LOC: ER 02:17 → TELE 04:46 → TELE1 06:16 → MEDSG1 10-05 08:54 → MEDSG2 10-05 10:47 → ICU 10-11 22:34 → TELE 10-13 14:41 → MED 10-14 13:28
PROVIDERS: ADMIT Nurse Practitioner Acute Care
PROC: 05HF33Z Insertion of Infusion Device into Left Cephalic Vein, Percutaneous Approach (ICD-10-PCS; principal; 2019-10-08)
PROC: 30233N1 Transfusion of Nonautologous Red Blood Cells into Peripheral Vein, Percutaneous Approach (ICD-10-PCS; 2019-10-12)
PROC: 5A09357 Assistance with Respiratory Ventilation, Less than 24 Consecutive Hours, Continuous Positive Airway Pressure (ICD-10-PCS; 2019-10-12)
DX: A41.2 Sepsis due to unspecified staphylococcus (principal); J15.9 Unspecified bacterial pneumonia; N17.0 Acute kidney failure with tubular necrosis; J96.01 Acute respiratory failure with hypoxia; I50.31 Acute diastolic (congestive) heart failure; L03.313 Cellulitis of chest wall; I13.0 Hypertensive heart and chronic kidney disease with heart failure and stage 1 through stage 4 chronic kidney disease, or unspecified chronic kidney disease; E87.2 Acidosis; N39.0 Urinary tract infection, site not specified; J98.11 Atelectasis; B95.8 Unspecified staphylococcus as the cause of diseases classified elsewhere; N18.9 Chronic kidney disease, unspecified; I25.10 Atherosclerotic heart disease of native coronary artery without angina pectoris; F41.9 Anxiety disorder, unspecified; D63.1 Anemia in chronic kidney disease; E11.22 Type 2 diabetes mellitus with diabetic chronic kidney disease; E11.649 Type 2 diabetes mellitus with hypoglycemia without coma; E11.65 Type 2 diabetes mellitus with hyperglycemia; E03.9 Hypothyroidism, unspecified; E87.5 Hyperkalemia; Y95 Nosocomial condition; N26.9 Renal sclerosis, unspecified; J84.10 Pulmonary fibrosis, unspecified; B02.9 Zoster without complications
CPT/HCPCS: 36415; 36600; 71045-TC; 76770-TC; 80048-TC; 80053-TC; 80061-TC; 80076-TC; 80202-TC; 81000-TC; 82570-TC; 82728-TC; 82803-TC; 82962-TC; 83540-TC; 83605-TC; 83615-TC; 83735-TC; 83880; 84100-TC; 84155-TC; 84300-TC; 84443-TC; 84484-TC; 85025-TC; 85730-TC; 86140-TC; 86850-TC; 86921-TC; 87040-TC; 87070-TC; 87081-TC; 87086-TC; 93307-TC; 94660; 94760-TC; A4216; A4217; A6253; A6403; G0378; J0360; J0692; J0696; J1644; J1815; J1940; J2060; J2185; J2248; J2270; J2405; J3370; J3490; J7030; J7040; J7050; J7060; J7517; P9016-BL; U0003-CS